=== PATIENT | female | born 1980 | race American Indian/Alaskan Native ===

== ENCOUNTER 2018-09-15 13:38 | Emergency (ER) | payer BC ==
--- NOTE | 2018-09-15 13:52 | Emergency Department Report ---
Blank Doc - Documentation Documentation: pt presents to the ED with c/o right sided tingling from the head to the RUE to the RLE that began 3-4 months ago c/o IBARRA has not been seen for this PMHx asthma no N/V/D no dizziness non smoker non drinker no drug use
[2018-09-15 13:53] VITALS: BP 126/92
[2018-09-15 14:31] LABS: Basophils % (Auto) 0.6 % (0.0-1.8); Eosinophils # (Auto) 0.4 K/mm3 (0.0-0.4); Eosinophils % (Auto) 6.7 % (0.0-4.3); Hematocrit 41.2 % (30.3-42.9); Hemoglobin 13.5 gm/dl (10.1-14.3); Lymphocytes # (Auto) 3.2 K/mm3 (1.2-5.4); Lymphocytes % (Auto) 48.7 % (13.4-35.0); Mean Corpuscular HGB Conc 33 % (30-34); Mean Corpuscular Volume 86 fl (79-97); Monocytes # (Auto) 0.4 K/mm3 (0.0-0.8); Monocytes % (Auto) 5.6 % (0.0-7.3); Platelet Count 355 K/mm3 (140-440); Red Cell Distribution Width 12.8 % (13.2-15.2)
[2018-09-15 14:33] LABS: BUN/Creatinine Ratio 13; Blood Urea Nitrogen 10 mg/dL (7-17); Calcium 9.6 mg/dL (8.4-10.2); Hemolysis Index 5
[2018-09-15 14:51] LABS: Bacteria,Urine 1+ /HPF (Negative); Bilirubin,Urine NEG (Negative); Blood,Urine NEG (Negative); Color,Urine Yellow (Yellow); Mucus,Urine FEW /HPF; Protein,Urine <15 mg/dL mg/dL (Negative); Urobilinogen,Urine < 2.0 mg/dL (<2.0)
[2018-09-15 14:59] LABS: HCG Qualitative,Urine Negative (Negative)
--- NOTE | 2018-09-15 16:06 | Emergency Department Report ---
ED General Adult HPI - General Chief complaint: Neuro Symptoms/Deficit Stated complaint: RT SIDE NUMB/HEADACHE Time Seen by Provider: 09/15/18 13:50 Source: patient Mode of arrival: Ambulatory Limitations: No Limitations - History of Present Illness Initial comments: Patient is a 38-year-old [place] female who states for the past week to 2 weeks she has been having right sided tingling mostly in her hands but she said he states occasionally in her feet and legs and arms. Patient states that there also is some tight feeling in the back of her neck with some radiation into the back of her head. Patient states headache is 3 out of 10 in severity. She denies any nausea vomiting diarrhea fevers chills, cold or congestion at this time. Patient states she is under a considerable amount of stress has been very worried that she is having a stroke. - Related Data Home Medications Medication Instructions Recorded Confirmed Last Taken Albuterol Sulfate [Proventil HFA] 1 - 2 puff IH Q4H PRN 10/22/14 10/22/14 Unknown Previous Rx's Medication Instructions Recorded Last Taken Type HYDROcodone/APAP 10-325 [[place] 1 each PO Q4-6H PRN #20 tablet 10/22/14 Unknown Rx 10/325] Ondansetron [Zofran Odt] 4 mg SL Q6H PRN #8 tab.rapdis 10/22/14 Unknown Rx ALPRAZolam [Xanax TAB] 0.25 mg PO BID PRN #7 tab 09/15/18 Unknown Rx Allergies Allergy/AdvReac Type Severity Reaction Status Date / Time penicillin Allergy Unknown Verified 10/22/14 03:26 ED Review of Systems ROS: Stated complaint: RT SIDE NUMB/HEADACHE Other details as noted in HPI Comment: All other systems reviewed and negative ED Past Medical Hx - Past Medical History Hx Asthma: Yes - Surgical History Additional Surgical History: RIGHT ROTATOR CUFF SURGERY-2008 - Social History Smoking Status: Never Smoker Substance Use Type: None - Medications Home Medications: Home Medications Medication Instructions Recorded Confirmed Last Taken Type Albuterol Sulfate [Proventil HFA] 1 - 2 puff IH Q4H PRN 10/22/14 10/22/14 Unknown History HYDROcodone/APAP 10-325 [[place] 1 each PO Q4-6H PRN #20 tablet 10/22/14 Unknown Rx 10/325] Ondansetron [Zofran Odt] 4 mg SL Q6H PRN #8 tab.rapdis 10/22/14 Unknown Rx ALPRAZolam [Xanax TAB] 0.25 mg PO BID PRN #7 tab 09/15/18 Unknown Rx ED Physical Exam - General Limitations: No Limitations General appearance: alert, in no apparent distress - Head Head exam: Present: atraumatic, normocephalic - Eye Eye exam: Present: normal appearance, PERRL, EOMI - ENT ENT exam: Present: mucous membranes moist - Neck Neck exam: Present: normal inspection - Respiratory Respiratory exam: Present: normal lung sounds bilaterally. Absent: respiratory distress, wheezes, rales, rhonchi - Cardiovascular Cardiovascular Exam: Present: regular rate, normal rhythm. Absent: systolic murmur, diastolic murmur, rubs, gallop - GI/Abdominal GI/Abdominal exam: Present: soft, normal bowel sounds. Absent: distended, tenderness, guarding, rebound - Extremities Exam Extremities exam: Present: normal inspection - Back Exam Back exam: Present: normal inspection - Neurological Exam Neurological exam: Present: alert, oriented X3 - Psychiatric Psychiatric exam: Present: normal affect, normal mood - Skin Skin exam: Present: warm, dry, intact, normal color. Absent: rash ED Course Vital Signs 09/15/18 13:52 Temperature 98.2 F Pulse Rate 84 Respiratory 18 Rate Blood Pressure 126/92 O2 Sat by Pulse 98 Oximetry ED Medical Decision Making - Lab Data Result diagrams: 09/15/18 14:00 09/15/18 14:00 Lab Results 09/15/18 09/15/18 09/15/18 Range/Units 14:00 14:00 Unknown WBC 6.6 (4.5-11.0) K/mm3 RBC 4.80 (3.65-5.03) M/mm3 Hgb 13.5 (10.1-14.3) gm/dl Hct 41.2 (30.3-42.9) % MCV 86 (79-97) fl MCH 28 (28-32) pg MCHC 33 (30-34) % RDW 12.8 L (13.2-15.2) % Plt Count 355 (140-440) K/mm3 Lymph % (Auto) 48.7 H (13.4-35.0) % [place] % (Auto) 5.6 (0.0-7.3) % Eos % (Auto) 6.7 H (0.0-4.3) % Baso % (Auto) 0.6 (0.0-1.8) % Lymph # 3.2 (1.2-5.4) K/mm3 [place] # 0.4 (0.0-0.8) K/mm3 Eos # 0.4 (0.0-0.4) K/mm3 Baso # 0.0 (0.0-0.1) K/mm3 Seg Neutrophils % 38.4 L (40.0-70.0) % Seg Neutrophils # 2.5 (1.8-7.7) K/mm3 Sodium 139 (137-145) mmol/L Potassium 3.7 (3.6-5.0) mmol/L Chloride 102.7 (98-107) mmol/L Carbon Dioxide 24 (22-30) mmol/L Anion Gap 16 mmol/L BUN 10 (7-17) mg/dL Creatinine 0.8 (0.7-1.2) mg/dL Estimated GFR > 60 ml/min BUN/Creatinine Ratio 13 % Glucose 85 (65-100) mg/dL Calcium 9.6 (8.4-10.2) mg/dL Phosphorus 3.20 (2.5-4.5) mg/dL Magnesium 2.00 (1.7-2.3) mg/dL Urine Color Yellow (Yellow) Urine Turbidity Slightly-cloudy (Clear) Urine pH 5.0 (5.0-7.0) Ur Specific [place] 1.019 (1.003-1.030) Urine Protein <15 mg/dl (Negative) mg/dL Urine Glucose (UA) Neg (Negative) mg/dL Urine Ketones Neg (Negative) mg/dL Urine Blood Neg (Negative) Urine Nitrite Neg (Negative) Urine Bilirubin Neg (Negative) Urine Urobilinogen < 2.0 (<2.0) mg/dL Ur Leukocyte Esterase Sm (Negative) Urine WBC (Auto) 5.0 (0.0-6.0) /HPF Urine RBC (Auto) 5.0 (0.0-6.0) /HPF U Epithel Cells (Auto) 7.0 (0-13.0) /HPF Urine Bacteria (Auto) 1+ (Negative) /HPF Urine Mucus Few /HPF Urine HCG, Qual Negative (Negative) - Medical Decision Making Patient has a NIH score of 0 and has very good strength. Patient states symptoms are intermittent and are associated with stress. Patient likely with paresthesias secondary to anxiety. It is atypical that the patient's symptoms are occurring only on the right side. Patient will be referred to her primary care physician and prescription for Xanax is been given. - Differential Diagnosis Subacute CVA, cervical radiculopathy, anxiety reaction, Critical care attestation.: If time is entered above; I have spent that time in minutes in the direct care of this critically ill patient, excluding procedure time. ED Disposition Clinical Impression: Arm paresthesia, right Disposition: [id number] TO HOME OR SELFCARE Is pt being admited?: No Does the pt Need Aspirin: No Condition: Stable Time of Disposition: 16:05 - Assessment Assessment Interval: Baseline - Level of Consciousness 1a. Level of Consciousness: alert/keenly responsive - LOC Questions 1b. LOC Questions: answers both correctly - LOC Command 1c. LOC Commands: performs tasks correctly - Best Gaze 2. Best Gaze: normal - Visual 3. Visual: no visual loss - Facial Palsy 4. Facial Palsy: normal symmetrical movement - Motor Arm 5a. Motor Arm Left: no drift 5b. Motor Arm Right: no drift - Motor Leg 6a. Motor Leg Left: no drift 6b. Motor Leg Right: no drift - Limb Ataxia 7. Limb Ataxia: absent - Sensory 8. Sensory: normal - Best Language 9. Best Language: no aphasia - Dysarthria 10. Dysarthria: normal - Extinction and Inattention 11. Extinction/Inattention: no abnormality - Scoring Total Score: 0 Stroke Severity: No Stroke Symptoms
== END 2018-09-15 16:15 | disposition home or self-care (01) ==
LOC: ED 13:38
DX: R20.2 Paresthesia of skin (principal); J45.909 Unspecified asthma, uncomplicated; Z88.0 Allergy status to penicillin
CPT/HCPCS: 36415; 80048; 81001; 81025; 83735; 84100; 85025; 99283

== ENCOUNTER 2021-10-05 14:20 | Emergency (ER) | payer BC ==
[2021-10-05 15:04] LABS: Basophils % (Auto) 0.5 % (0.0-1.8); Eosinophils # (Auto) 0.5 K/mm3 (0.0-0.4); Eosinophils % (Auto) 5.3 % (0.0-4.3); Hematocrit 30.5 % (30.3-42.9); Hemoglobin 9.8 gm/dl (10.1-14.3); Lymphocytes # (Auto) 3.1 K/mm3 (1.2-5.4); Lymphocytes % (Auto) 36.1 % (13.4-35.0); Mean Corpuscular HGB Conc 32 % (30-34); Mean Corpuscular Volume 70 fl (79-97); Monocytes # (Auto) 0.6 K/mm3 (0.0-0.8); Monocytes % (Auto) 7.6 % (0.0-7.3); Platelet Count 364 K/mm3 (140-440); Red Blood Count 4.39 M/mm3 (3.65-5.03)
[2021-10-05 15:11] LABS: HCG Qualitative,Urine Negative (Negative)
[2021-10-05 15:12] LABS: Bilirubin,Urine NEG (Negative); Blood,Urine MOD (Negative); Color,Urine Yellow (Yellow); Protein,Urine <15 mg/dL mg/dL (Negative); Urobilinogen,Urine < 2.0 mg/dL (<2.0)
[2021-10-05 15:15] LABS: INR 0.94 (0.87-1.13)
[2021-10-05 15:16] LABS: Partial Thromboplastin Time 26.4 Sec. (24.2-36.6)
[2021-10-05 15:19] LABS: Bacteria,Urine 2+ /HPF (Negative); Mucus,Urine 3+ /HPF
[2021-10-05 15:25] LABS: Blood Urea Nitrogen 8 mg/dL (7-17); Calcium 9.3 mg/dL (8.4-10.2); Hemolysis Index 5
[2021-10-05 15:26] LABS: BUN/Creatinine Ratio 11
[2021-10-05] MEDS ORDERED: diazePAM 2 MG TAB PO ONE (16:02)
--- NOTE | 2021-10-05 16:07 | Emergency Department Report ---
ED Neuro Deficit HPI - General Chief Complaint: Neuro Symptoms/Deficit Stated Complaint: RT SIDE NUMBNESS Time Seen by Provider: 10/05/21 15:48 Source: patient Mode of arrival: Ambulatory Limitations: No Limitations - History of Present Illness Initial Comments: 41-year-old female with a past medical history of asthma and anxiety presents to the hospital with complaints right-sided numbness/paresthesias and posterior headache for the last 3 days. Patient states for the last several years she has had similar symptoms of intermittent right-sided paresthesias that have been diagnosed as anxiety. Patient was placed on BuSpar but she discontinued due to side effects. She was subsequently placed on a medication as begins with the letter "L" but has been noncompliant with that medication because she does not like how it makes her feel. The last few days the right sided face, arm, and leg paresthesias have been more intense and constant. She has also now been experiencing a intermittent posterior headache currently rated 4/10 in intensity for the past 3 days. No aggravating relieving factors reported. Patient does state that she is under a lot of stress lately. She does have intermittent chest pressure, left scapular pain, and perceived palpitations. She denies shortness of breath, dysarthria, ataxia, or urinary symptoms. Patient appears not to have any stroke risk factors and denies hypertension, hyperlipidemia, smoking, or control pill use. Patient was here in 2019 and diagnosed with anxiety. She states since symptoms have began she has not received imaging of her brain. - Related Data Home Medications: Home Medications Medication Instructions Recorded Confirmed Last Taken Albuterol Sulfate [Proventil HFA] 1 - 2 puff IH Q4H PRN 10/22/14 10/22/14 Unknown Previous Rx's Medication Instructions Recorded Last Taken Type HYDROcodone/APAP 10-325 [[place] 1 each PO Q4-6H PRN #20 tablet 10/22/14 Unknown Rx 10/325] Ondansetron [Zofran Odt] 4 mg SL Q6H PRN #8 tab.rapdis 10/22/14 Unknown Rx ALPRAZolam [Xanax TAB] 0.25 mg PO BID PRN #7 tab 09/15/18 Unknown Rx Nitrofurantoin [place]/M-[place]ryst 100 mg PO Q12HR #10 capsule 10/05/21 Unknown Rx [Macrobid CAP] diazePAM TAB [Valium] 2 mg PO TID PRN #14 tablet 10/05/21 Unknown Rx Allergies/Adverse Reactions: Allergies Allergy/AdvReac Type Severity Reaction Status Date / Time penicillin Allergy Unknown Verified 10/22/14 03:26 ED Review of Systems ROS: Stated complaint: RT SIDE NUMBNESS Other details as noted in HPI Comment: All other systems reviewed and negative ED Past Medical Hx - Past Medical History Hx Asthma: Yes Additional medical history: anxiety - Surgical History Additional Surgical History: RIGHT ROTATOR CUFF SURGERY-2008, breast enhancement, liposuction - Social History Smoking Status: Never Smoker - Medications Home Medications: Home Medications Medication Instructions Recorded Confirmed Last Taken Type Albuterol Sulfate [Proventil HFA] 1 - 2 puff IH Q4H PRN 10/22/14 10/22/14 Unknown History HYDROcodone/APAP 10-325 [[place] 1 each PO Q4-6H PRN #20 tablet 10/22/14 Unknown Rx 10/325] Ondansetron [Zofran Odt] 4 mg SL Q6H PRN #8 tab.rapdis 10/22/14 Unknown Rx ALPRAZolam [Xanax TAB] 0.25 mg PO BID PRN #7 tab 09/15/18 Unknown Rx Nitrofurantoin [place]/M-[place]ryst 100 mg PO Q12HR #10 capsule 10/05/21 Unknown Rx [Macrobid CAP] diazePAM TAB [Valium] 2 mg PO TID PRN #14 tablet 10/05/21 Unknown Rx ED Neuro Physical Exam - General Limitations: No Limitations Suspected Stroke: No - NIHSS Assessment Interval: Baseline 1a. Level of Consciousness: alert/keenly responsive 1b. LOC Questions: answers both correctly 1c. LOC Commands: performs tasks correctly 2. Best Gaze: normal 3. Visual: no visual loss 4. Facial Palsy: normal symmetrical movement 5b. Motor Arm Right: no drift 5a. Motor Arm Left: no drift 6a. Motor Leg Left: no drift 6b. Motor Leg Right: no drift 7. Limb Ataxia: absent 8. Sensory: normal 9. Best Language: mild/moderate aphasia 10. Dysarthria: intubated or other barrier 11. Extinction/Inattention: no abnormality Total Score: 1 Stroke Severity: Minor Stroke - Other Other exam information: General: No acute distress Head: Atraumatic Eyes: normal appearance ENT: Moist mucous membranes Neck: Normal appearance, no midline tenderness Chest: Clear to auscultation bilaterally CV: Regular rate and rhythm Abdomen: Soft, normal bowel sounds, nontender, nondistended, no rebound or guarding Back: Normal inspection Extremity: Normal inspection, full range of motion Neuro: Alert O x 3, see NIH stroke scale Psych: Appropriate behavior Skin: No rash ED Course Vital Signs 10/05/21 10/05/21 10/05/21 14:35 17:42 18:00 Temperature 97.9 F Pulse Rate 84 80 Respiratory 14 18 Rate Blood Pressure 120/81 Blood Pressure 118/78 [Left] O2 Sat by Pulse 100 100 99 Oximetry - Consultations Consultation #1: 10/05/21 16:56 case d/w DR Almanza tele neuro, agrees pt may benefit from MRI and neuro eval that can be done as an outpatient. - Lab Data Result diagrams: 10/05/21 14:47 10/05/21 14:47 Lab Results 10/05/21 10/05/21 10/05/21 Range/Units 14:47 14:47 14:47 WBC 8.6 (4.5-11.0) K/mm3 RBC 4.39 (3.65-5.03) M/mm3 Hgb 9.8 L (10.1-14.3) gm/dl Hct 30.5 (30.3-42.9) % MCV 70 L (79-97) fl MCH 22 L (28-32) pg MCHC 32 (30-34) % RDW 15.0 (13.2-15.2) % Plt Count 364 (140-440) K/mm3 Lymph % (Auto) 36.1 H (13.4-35.0) % [place] % (Auto) 7.6 H (0.0-7.3) % Eos % (Auto) 5.3 H (0.0-4.3) % Baso % (Auto) 0.5 (0.0-1.8) % Lymph # (Auto) 3.1 (1.2-5.4) K/mm3 [place] # (Auto) 0.6 (0.0-0.8) K/mm3 Eos # (Auto) 0.5 H (0.0-0.4) K/mm3 Baso # (Auto) 0.0 (0.0-0.1) K/mm3 Seg Neutrophils % 50.5 (40.0-70.0) % Seg Neutrophils # 4.3 (1.8-7.7) K/mm3 PT 13.9 (12.2-14.9) Sec. INR 0.94 (0.87-1.13) APTT 26.4 (24.2-36.6) Sec. Thrombin Time 15.0 L (15.1-19.6) Sec. Sodium 137 (137-145) mmol/L Potassium 3.9 (3.6-5.0) mmol/L Chloride 103.7 (98-107) mmol/L Carbon Dioxide 22 (22-30) mmol/L Anion Gap 15 mmol/L BUN 8 (7-17) mg/dL Creatinine 0.7 (0.6-1.2) mg/dL Estimated GFR > 60 ml/min BUN/Creatinine Ratio 11 % Glucose 90 (65-100) mg/dL Calcium 9.3 (8.4-10.2) mg/dL Troponin T < 0.010 (0.00-0.029) ng/mL Urine Color (Yellow) Urine Turbidity (Clear) Urine pH (5.0-7.0) Ur Specific [place] (1.003-1.030) Urine Protein (Negative) mg/dL Urine Glucose (UA) (Negative) mg/dL Urine Ketones (Negative) mg/dL Urine Blood (Negative) Urine Nitrite (Negative) Ur Reducing Substances Urine Bilirubin (Negative) Urine Ictotest Urine Urobilinogen (<2.0) mg/dL Ur Leukocyte Esterase (Negative) Urine WBC (Auto) (0.0-6.0) /HPF Urine RBC (Auto) (0.0-6.0) /HPF U Epithel Cells (Auto) (0-13.0) /HPF Urine Bacteria (Auto) (Negative) /HPF Urine Mucus /HPF Urine HCG, Qual (Negative) 10/05/21 Range/Units Unknown WBC (4.5-11.0) K/mm3 RBC (3.65-5.03) M/mm3 Hgb (10.1-14.3) gm/dl Hct (30.3-42.9) % MCV (79-97) fl MCH (28-32) pg MCHC (30-34) % RDW (13.2-15.2) % Plt Count (140-440) K/mm3 Lymph % (Auto) (13.4-35.0) % [place] % (Auto) (0.0-7.3) % Eos % (Auto) (0.0-4.3) % Baso % (Auto) (0.0-1.8) % Lymph # (Auto) (1.2-5.4) K/mm3 [place] # (Auto) (0.0-0.8) K/mm3 Eos # (Auto) (0.0-0.4) K/mm3 Baso # (Auto) (0.0-0.1) K/mm3 Seg Neutrophils % (40.0-70.0) % Seg Neutrophils # (1.8-7.7) K/mm3 PT (12.2-14.9) Sec. INR (0.87-1.13) APTT (24.2-36.6) Sec. Thrombin Time (15.1-19.6) Sec. Sodium (137-145) mmol/L Potassium (3.6-5.0) mmol/L Chloride (98-107) mmol/L Carbon Dioxide (22-30) mmol/L Anion Gap mmol/L BUN (7-17) mg/dL Creatinine (0.6-1.2) mg/dL Estimated GFR ml/min BUN/Creatinine Ratio % Glucose (65-100) mg/dL Calcium (8.4-10.2) mg/dL Troponin T (0.00-0.029) ng/mL Urine Color Yellow (Yellow) Urine Turbidity Slightly-cloudy (Clear) Urine pH 5.0 (5.0-7.0) Ur Specific [place] 1.023 (1.003-1.030) Urine Protein <15 mg/dl (Negative) mg/dL Urine Glucose (UA) Neg (Negative) mg/dL Urine Ketones Neg (Negative) mg/dL Urine Blood Mod (Negative) Urine Nitrite Neg (Negative) Ur Reducing Substances Not Reportable Urine Bilirubin Neg (Negative) Urine Ictotest Not Reportable Urine Urobilinogen < 2.0 (<2.0) mg/dL Ur Leukocyte Esterase Mod (Negative) Urine WBC (Auto) 24.0 H (0.0-6.0) /HPF Urine RBC (Auto) 5.0 (0.0-6.0) /HPF U Epithel Cells (Auto) 14.0 H (0-13.0) /HPF Urine Bacteria (Auto) 2+ (Negative) /HPF Urine Mucus 3+ /HPF Urine HCG, Qual Negative (Negative) - Radiology Data Radiology results: report reviewed CT head/brain wo con INDICATION / CLINICAL INFORMATION: 41 years Female; neuro deficits <6hrs or sx present upon awakening. TECHNIQUE: Routine CT head without contrast. All CT scans at this location are performed using CT dose reduction for ALARA by means of automated exposure control. COMPARISON: None. FINDINGS: BRAIN / INTRACRANIAL CONTENTS: The brain demonstrate appropriate attenuation. The ventricular system is within normal limits in size and configuration. There is no CT evidence of acute intracranial hemorrhage or significant mass effect. ORBITS: No significant abnormality of visualized orbits. SINUSES / MASTOIDS: No significant abnormality in the visualized paranasal sinuses or mastoid air cells. CRANIOCERVICAL JUNCTION: No significant abnormality. ADDITIONAL FINDINGS: None. IMPRESSION: 1. There is no CT evidence of acute intracranial process. - Medical Decision Making 41-year-old female presents to the hospital with right-sided paresthesias from the arm, her face, and leg intermittent for several years persistent for 3 days. ED work-up reveals no significant lab abnormality and an unremarkable CAT scan head. Urine suggestive of contaminated sample versus UTI. Patient denies urinary symptoms however, will be treated empirically. Patient's symptoms improved with Valium 2 mg provided in the ED. 1 dose of Macrobid also provided. Case discussed with telemetry neurologist Dr. Almanza who agrees that patient may benefit from further outpatient neurology evaluation including MRI. Outpatient referrals for neurology will be provided and referral for psychiatry for further assessment and medication treatment. steady gait noticed in ED. Critical Care Time: No Critical care attestation.: If time is entered above; I have spent that time in minutes in the direct care of this critically ill patient, excluding procedure time. ED Disposition Clinical Impression: Right sided numbness, Paresthesia, Anxiety, Stress reaction, UTI (urinary tract infection) Disposition: 01 HOME / SELF CARE / HOMELESS Is pt being admited?: No Does the pt Need Aspirin: No Condition: Stable Instructions: Paresthesia, Urinary Tract Infection, Adult, [id number], Managing Anxiety, Adult Additional Instructions: Take the medication as prescribed. It is important you follow-up with a neurologist for further outpatient neurologic work-up including MRI brain to rule out other causes of right sided numbness/tingling I also recommend that you follow-up with your outpatient psychiatrist for medical management of your anxiety and stress. Please return if symptoms worsen as indicated by your discharge instructions. Outpatient psychiatric resources provided below based on your county of residence Professional and Agency Contacts To help [facility] (02/11) [place] Crisis Line: Suicide Prevention Line: Crisis Text Line: Text ``START to 044051 Emergency: 911 Outpatient COMMUNITY Behavioral Health Resources: LUIS ANTONIO: [facility] [address], [place] [address] [place]: [facility] [address] [place] [address] Wednesday thru Wednesday - 8am - 5pm Call to schedule an assessment for mental health and substance abuse programs [facility] Address: [address] [place], [place] [address]Wednesday thru Wednesday- 7am-2pm [facility] Address: [address] [place] [address] Wednesday thru Wednesday: 8:30AM-5PM Prescriptions: Nitrofurantoin [place]/M-Cryst [Macrobid CAP] 100 mg PO Q12HR #10 capsule diazePAM TAB [Valium] 2 mg PO TID PRN #14 tablet PRN Reason: Anxiety Referrals: PRIMARY CARE, [Primary Care Provider] - 3-5 Days SHAKIR JETER MD [Staff Physician] - 3-5 Days (Neurology) Time of Disposition: 18:12
--- NOTE | 2021-10-05 16:42 | Cat Scan Report ---
CT head/brain wo con INDICATION / CLINICAL INFORMATION: 41 years Female; neuro deficits <6hrs or sx present upon awakening. TECHNIQUE: Routine CT head without contrast. All CT scans at this location are performed using CT dos e reduction for ALARA by means of automated exposure control. COMPARISON: None. FINDINGS: BRAIN / INTRACRANIAL CONTENTS: The brain demonstrate appropriate attenuation. The ventricular system is within normal limits in size and configuration. There is no CT evidence of acute intracranial hemo rrhage or significant mass effect. ORBITS: No significant abnormality of visualized orbits. SINUSES / MASTOIDS: No significant abnormality in the visualized paranasal sinuses or mastoid air nikos ls. CRANIOCERVICAL JUNCTION: No significant abnormality. ADDITIONAL FINDINGS: None. IMPRESSION: 1. There is no CT evidence of acute intracranial process. Signer Name: Otf Rae MD Signed: 10/05/2021 4:38 PM Workstation Name: [id number]
[2021-10-05] MEDS ORDERED: NITROFURANTOIN MONOHYD/M-CRYST 100 MG CAP PO ONE (17:35)
--- NOTE | 2021-10-05 17:49 | Emergency Department Report ---
Blank Doc - Documentation Documentation: [facility] Consult Note # Demographics Consult Type: General Neurology Patient Location: Emergency Room First Name: Josefina Last Name: Remi Date of : 1980 Age: 41 Gender: Female Facility: [facility] Time of Initial Page (Eastern Time): 10/05/2021, 16:47 Time of Return Call (Eastern Time): 10/05/2021, 16:47 Phone Only Consult: 41yo F presents with 3 days of right sided paresthesias of the face arm and leg. has had similar intermittent symptoms in the past which has been diagnosed as anxiety. this time has a headache. endorses increased stress. CT head was unremarkable. # PMH-FH-SH Past Medical History: anxiety Medications: non-compliant with medications # Plan Other: I have discussed my recommendations with the referring provider Additional Recommendations: ok for outpatient MRI brain wwo contrast to eval further # Logistics Telemedicine: phone only
[2021-10-05 18:30] VITALS: BP 118/78
--- NOTE | 2021-10-06 10:49 | Electrocardiograph Report ---
[facility] Test Date: 2021-10-05 Test Time: 14:30:47 Pat Name: COLTON VARGAS Department: Room: Gender: F Director Of Sales And Marketing: DEVAUGHN : 1980 Requested By: ED DOC Order Number: [id number] Reading MD: Too Gomez Measurements Intervals [place] Rate: 80 P: 54 AK: 131 QRS: 55 QRSD: 97 T: 54 QT: 389 QTc: 450 Interpretive Statements Sinus rhythm No previous ECG available for comparison Electronically Signed On 10-06-2021 10:49:04 EDT by Too Gomez
== END 2021-10-05 18:25 | disposition home or self-care (01) ==
LOC: ED 14:20
DX: F41.1 Generalized anxiety disorder (principal); F43.0 Acute stress reaction; N39.0 Urinary tract infection, site not specified; R20.0 Anesthesia of skin; R20.2 Paresthesia of skin; J45.909 Unspecified asthma, uncomplicated; Z98.890 Other specified postprocedural states; Z88.0 Allergy status to penicillin
CPT/HCPCS: 36415; 70450; 80048; 81001; 81025; 84484; 85025; 85610; 85670; 85730; 87086; 93005; 99284